=== PATIENT | male | born 1945 | race Caucasian/White ===

== ENCOUNTER → 2016-07-30 | Outpatient (REF) | payer MEDICARE, MEDICAID ==
[~2016-07-30] MED LIST: AMLO25TA PO; BENI40TA7 PO; CALTTAB10 PO; DOCU10CA PO; DULC5TAB PO; FENO145T PO; FISH1000 PO; LEVA250T PO; MIRA3350 PO; OSEL75CA PO; PERC5TAB6 PO; PRAV40TA2 PO
[2016-07-30 13:08] LABS: ALBUMIN 4.2 GM/DL (3.2-5.2); ALBUMIN/GLOBULIN RATIO 1.31 (1.00-1.93); BILIRUBIN,TOTAL 0.5 MG/DL (0.2-1.0); CALCIUM LEVEL 9.1 MG/DL (8.8-10.2); CREATININE FOR GFR 1.38 MG/DL (0.70-1.30); GLOMERULAR FILTRATION RATE 53.8 (>42); POTASSIUM SERUM 4.1 MEQ/L (3.5-5.1); TOTAL PROTEIN 7.4 GM/DL (6.4-8.2)
== END ==
LOC: M SFHCPLAZ 12:35
PROVIDERS: ATTEND Family Medicine
DX: I10 Essential (primary) hypertension (principal)

== ENCOUNTER → 2016-10-16 | Outpatient (REF) | payer MEDICARE, MEDICAID | LOC: M SFHCPLAZ 14:17 | PROVIDERS: ATTEND Family Medicine | DX: R73.03 Prediabetes (principal) ==

== ENCOUNTER → 2016-11-23 | Outpatient (CLI) | payer MEDICARE, MEDICAID ==
--- NOTE | 2016-11-23 14:30 | REP ---
CT abdomen pelvis without IV or bowel contrast: Comparison is 08/18/2014. On the comparison study there was a small half 3 ml nonobstructive right renal calculus. This calculus is no longer present. Previously there was a right ureteral stent. This stent has been removed. There are no left renal calculi, as previously. There are no ureteral or bladder calculi. There is no hydronephrosis. The visualized lung khanna are unremarkable. The unenhanced hepatic parenchyma, gallbladder, pancreas and spleen are unremarkable. The adrenals, kidneys and abdominal aorta are unremarkable. There is no bowel distension. Pelvis: There is no ascites or adenopathy. The prostate is moderately enlarged and contains prostatic list. The bladder is almost completely collapsed. There is no adenopathy or ascites. There is descending colon diverticulosis without diverticulitis. Impression: There are no renal, ureteral or bladder calculi. The previous right renal calculus is no longer present. The previous right ureteral stent has been removed. There is descending colon diverticulosis without diverticulitis, unchanged. The prostate is moderately enlarged and contains prostatic of this. Signed by Chaim Chopra MD 11/23/2016 02:21 P
== END ==
LOC: M RAD 12:46
PROVIDERS: ATTEND Internal Medicine Nephrology
DX: N40.0 Benign prostatic hyperplasia without lower urinary tract symptoms (principal); K57.30 Diverticulosis of large intestine without perforation or abscess without bleeding; Z87.442 Personal history of urinary calculi

== ENCOUNTER → 2017-03-10 | Outpatient (REF) | payer MEDICARE, MEDICAID ==
[~2017-03-10] MED LIST changes: +BENI40TA30 PO; -BENI40TA7 PO; +LEVA1TAB PO; -LEVA250T PO; +PERC5TAB12 PO; -PERC5TAB6 PO
== END ==
LOC: M SFHCPLAZ 10:12
DX: R73.03 Prediabetes (principal)

== ENCOUNTER → 2017-03-17 | Outpatient (REF) | payer MEDICARE, MEDICAID ==
[2017-03-17 13:17] LABS: BASO % 0.3 % (0.0-1.0); EOS # 0.1 10^3/uL (0.0-0.50); EOS % 0.7 % (0.0-3.0); IMMATURE GRANULOCYTE % 0.4 % (0-0); LYMPH # 1.1 10^3/uL (1.5-4.5); LYMPH % 14.5 % (24.0-44.0); MEAN CORPUSCULAR HEMOGLOBIN 31.1 pg (27.0-33.0); MEAN CORPUSCULAR HGB CONC 33.3 g/dl (32.0-36.5); MEAN CORPUSCULAR VOLUME 93.4 fl (80.0-96.0); MONO # 0.9 10^3/uL (0.0-0.8); MONO % 11.7 % (0.0-5.0); NEUTROPHILS # 5.4 10^3/uL (1.8-7.7); NEUTROPHILS % 72.4 % (36.0-66.0); PLATELET COUNT, AUTOMATED 227 10^3/uL (150-450); RED CELL DISTRIBUTION WIDTH 12.7 % (11.5-14.5); WHITE BLOOD COUNT 7.5 10^3/uL (4.0-10.0)
[2017-03-17 13:20] LABS: ANION GAP 9 MEQ/L (8-16); BLOOD UREA NITROGEN 29 MG/DL (7-18); CALCIUM LEVEL 9.3 MG/DL (8.8-10.2); CARBON DIOXIDE LEVEL 26 MEQ/L (21-32); CHLORIDE LEVEL 102 MEQ/L (98-107); CREATININE FOR GFR 1.16 MG/DL (0.70-1.30); GLOMERULAR FILTRATION RATE > 60.0 (>42); GLUCOSE, FASTING 89 MG/DL (83-110); POTASSIUM SERUM 4.4 MEQ/L (3.5-5.1); SODIUM LEVEL 137 MEQ/L (136-145)
[2017-03-17 13:23] LABS: ADD MANUAL DIFFER NO; DIFF SLIDE NUMBER 191
== END ==
LOC: M SFHCPLAZ 10:36
PROVIDERS: ATTEND Family Medicine
DX: R19.7 Diarrhea, unspecified (principal)

== ENCOUNTER → 2017-03-17 | Outpatient (CLI) | payer MEDICARE, MEDICAID ==
--- NOTE | 2017-03-17 13:31 | REP ---
Chest x-ray: Two views. History: Respiratory tract infection. Comparison study: August 24, 2014. Findings: The lungs are symmetrically aerated and free of infiltrate. Left hemidiaphragm is slightly elevated. Gaseous distension of the colon and the stomach are seen in the upper abdomen mild in degree. The heart is not enlarged. Pulmonary vasculature is not increased. There are degenerative changes in the thoracic spine. Mild pectus. Impression: No acute cardiopulmonary disease. Gaseous distension of the colon is seen in the upper abdomen. Signed by Matias Fry MD 03/17/2017 03:54 P
== END ==
LOC: M LAB 11:19 → M RAD 11:19
PROVIDERS: ATTEND Family Medicine
DX: J98.8 Other specified respiratory disorders (principal); R19.7 Diarrhea, unspecified

== ENCOUNTER → 2017-03-18 | Outpatient (REF) | payer MEDICARE, MEDICAID | LOC: M SFHCPLAZ 11:14 | PROVIDERS: ATTEND Family Medicine | DX: R19.7 Diarrhea, unspecified (principal) ==

== ENCOUNTER → 2017-08-16 | Outpatient (CLI) | payer MEDICARE, MEDICAID ==
[2017-08-16 09:44] LABS: CHOLESTEROL LEVEL 168 MG/DL (<200); HDL CHOLESTEROL 52 MG/DL (>40); LDL CHOLESTEROL 87.4 MG/DL (<100); NON-HDL-C 116 MG/DL; TRIGLYCERIDES LEVEL 143 MG/DL (<150)
[2017-08-16 09:53] LABS: ESTIMATED AVERAGE GLUCOSE 126 MG/DL (60-110)
== END ==
LOC: M LAB 08:58
DX: R73.03 Prediabetes (principal); E78.5 Hyperlipidemia, unspecified
CPT/HCPCS: 83036

== ENCOUNTER → 2017-11-09 | Outpatient (REF) | payer MEDICARE, MEDICAID ==
[2017-11-09 15:43] LABS: FREE T4 0.94 NG/DL (0.76-1.46)
[2017-11-09 20:01] LABS: FOLATE > 24.0 NG/ML
[2017-11-10 08:22] LABS: VITAMIN B12 LEVEL 1377 PG/ML
== END ==
LOC: M LAB REF 13:38
DX: E03.9 Hypothyroidism, unspecified (principal); D53.1 Other megaloblastic anemias, not elsewhere classified
CPT/HCPCS: 82746

== ENCOUNTER → 2018-09-09 | Outpatient (REF) | payer MEDICARE, MEDICAID ==
[~2018-09-09] MED LIST changes: -FENO145T PO; +FENO145T13 PO; -LEVA1TAB PO; +LEVA250T13 PO
== END ==
LOC: M SFHCPLAZ 17:05
PROVIDERS: ATTEND Dermatology
DX: C44.310 Basal cell carcinoma of skin of unspecified parts of face (principal)

== ENCOUNTER 2019-05-17 12:23 | Emergency (ER) | payer MEDICAID, MEDICARE ==
[~2019-05-17] VITALS: Ht 172.7 cm; Wt 80.9 kg
[2019-05-17] MEDS ORDERED: ALLO100T (12:39)
[2019-05-17] MEDS ORDERED: HYDR25TAB (12:39)
[2019-05-17] MEDS ORDERED: TRIA1OI (12:39)
[2019-05-17] MEDS ORDERED: METO1TAB32 (12:39)
[2019-05-17] MEDS ORDERED: MECL-58 (12:39)
[2019-05-17] MEDS ORDERED: LISI10TA4 (12:39)
[2019-05-17] MEDS ORDERED: GI COCKTAIL 50ML BTL(HYOSCYAMINE/MAALOX/LIDOCAINE VISCOUS)(1:3:1) PO ONE (13:15)
--- NOTE | 2019-05-17 13:27 | REP ---
Single view chest: 05/17/2019. Indication: Chest pain. Comparison: 03/17/2017. Findings: Poor inspiratory result is present. Moderately prominent vascular markings are noted. Opacities within the lung bases are present bilaterally. There is no pleural effusion or pneumothorax. The cardiac silhouette is not enlarged. Impression: Findings suggestive of CHF. Basilar air space consolidations are not excluded. Electronically Signed by Arslan Romero DO 05/17/2019 01:18 P
[2019-05-17 13:46] LABS: BASO % 0.3 % (0.0-1.0); HEMATOCRIT 39.1 % (42.0-52.0); LYMPH # 0.4 10^3/uL (1.5-5.0); LYMPH % 3.2 % (24.0-44.0); MEAN CORPUSCULAR HEMOGLOBIN 32.2 pg (27.0-33.0); MEAN CORPUSCULAR HGB CONC 33.2 g/dl (32.0-36.5); MEAN CORPUSCULAR VOLUME 96.8 fl (80.0-96.0); MONO # 1.2 10^3/uL (0.0-0.8); MONO % 10.1 % (0.0-5.0); NEUTROPHILS # 10.3 10^3/uL (1.5-8.5); NEUTROPHILS % 85.9 % (36.0-66.0); PLATELET COUNT, AUTOMATED 219 10^3/uL (150-450); RED BLOOD COUNT 4.04 10^6/uL (4.30-6.10)
[2019-05-17 13:52] LABS: BLOOD UREA NITROGEN 25 MG/DL (7-18); CALCIUM LEVEL 9.4 MG/DL (8.8-10.2); CARBON DIOXIDE LEVEL 28 MEQ/L (21-32); CHLORIDE LEVEL 109 MEQ/L (98-107); CK-MB VALUE MASS 6.9 NG/ML (<3.6); CPK CREATINE PHOSPHOKINASE 366 U/L (39-308); CREATININE FOR GFR 1.27 MG/DL (0.70-1.30); GLOMERULAR FILTRATION RATE 58.9 (>42); GLUCOSE, FASTING 122 MG/DL (70-100); MB/CK RELATIVE INDEX 1.89 (< OR =4); POTASSIUM SERUM 4.6 MEQ/L (3.5-5.1); SODIUM LEVEL 142 MEQ/L (136-145); TROPONIN I < 0.02 NG/ML (< 0.10)
[2019-05-17 13:59] LABS: ALBUMIN 3.7 GM/DL (3.2-5.2); BILIRUBIN,DIRECT 0.2 MG/DL (0.0-0.2); BILIRUBIN,TOTAL 0.9 MG/DL (0.2-1.0); TOTAL PROTEIN 7.2 GM/DL (6.4-8.2)
[2019-05-17 14:21] LABS: NT-PRO BNP 353 PG/ML (<450)
[2019-05-17] MEDS ORDERED: FAMOTIDINE 20 MG TAB PO ONE (15:15)
--- NOTE | 2019-05-17 15:45 | ECGEPIP ---
[facility] - ED Test Date: 2019-05-17 Pat Name: ROSALVA EDWARDS Department: Room: - Gender: Male On Call Pharmacy Technician: ct : 1945 Requested By: DOMINIQUE Padilla Order Number: [id number] Reading MD: Lesly Ko Measurements Intervals [place] Rate: 71 P: 36 CT: 189 QRS: -19 QRSD: 90 T: 56 QT: 344 QTc: 374 Interpretive Statements SINUS RHYTHM MODERATE VOLTAGE CRITERIA FOR LVH, CONSIDER NORMAL VARIANT CLINICAL CORRELATION ADVISED SEPTAL AR Electronically Signed on 05-17-2019 15:44:38 EST by Lesly Ko
[2019-05-17 17:17] LABS: CK-MB VALUE MASS 4.7 NG/ML (<3.6); CPK CREATINE PHOSPHOKINASE 313 U/L (39-308); TROPONIN I < 0.02 NG/ML (< 0.10)
[2019-05-17] MEDS ORDERED: PEPC1TAB5 PO (17:21)
[2019-05-17 18:00] VITALS: BP 113/58
--- NOTE | 2019-05-18 17:55 | ECGEPIP ---
[facility] - ED Test Date: 2019-05-17 Pat Name: ROSALVA EDWARDS Department: Room: - Gender: Male [employer] Developer: ct : 1945 Requested By: LISBETH CARRERA Order Number: [id number] Reading MD: Kaiser Miller Measurements Intervals [place] Rate: 67 P: 34 GA: 192 QRS: -24 QRSD: 80 T: 50 QT: 349 QTc: 369 Interpretive Statements SINUS RHYTHM BORDERLINE LEFT AXIS DEVIATION VOLTAGE CRITERIA FOR LVH SIMILAR TO PRIOR ON SAME DATE Electronically Signed on 05-18-2019 17:55:51 EST by Kaiser Miller
== END 2019-05-17 18:25 | disposition home or self-care (01) ==
LOC: M ED 13:27
DX: K21.9 Gastro-esophageal reflux disease without esophagitis (principal); R05 Cough; R91.8 Other nonspecific abnormal finding of lung field; R94.31 Abnormal electrocardiogram [ECG] [EKG]; I10 Essential (primary) hypertension; E78.5 Hyperlipidemia, unspecified; Z87.442 Personal history of urinary calculi; Z79.82 Long term (current) use of aspirin; Z79.84 Long term (current) use of oral hypoglycemic drugs; Z79.899 Other long term (current) drug therapy

== ENCOUNTER 2019-06-27 06:50 | Day surgery (SDC) | payer MEDICAID, MEDICARE ==
[~2019-06-27] VITALS: Ht 172.7 cm; Wt 73.9 kg
[~2019-06-27 06:50] MED LIST changes: +ALLO100T PO; +ASPI81TA26 PO; +B-12100010 PO; +CALTTAB6 PO; +COLA100C5 PO; -FENO145T13 PO; +FENO145T7 PO; +HYDR25TAB PO; +LISI10TA4 PO; +MECL-58; +METO1TAB32 PO; +NS 1,000 ML IV ONE; +PEPC1TAB5 PO; +TRIA1OI; +VITA100066 PO
[2019-06-27] MEDS ORDERED: propofoL 200 MG/20 ML VIAL As Ordered ONE (07:03)
[2019-06-27] MEDS ORDERED: LIDOCAINE 2% INJ 100 MG/5 ML SDV (FOR ANES.) As Ordered ONE (07:03)
[2019-06-27] MEDS ORDERED: ePHEDrine SULFATE 25 MG/5 ML(5MG/ML) SYRINGE As Ordered ONE (07:50)
--- NOTE | 2019-06-27 08:12 | ROOR ---
Patient Name: Jg Beckwith Procedure Date: 06/27/2019 7:40 AM Date of : 1945 Age: 73 Room: [facility] Gender: Male Note Status: Finalized Procedure: Colonoscopy Indications: Heme positive stool Providers: Keshawn Lieberman MD Referring MD: Yessenia Swain NP Requesting Provider: Medicines: Monitored Anesthesia Care Complications: No immediate complications. Procedure: Pre-Anesthesia Assessment: - Prior to the procedure, a History and Physical was performed, and patient medications and allergies were reviewed. The patient is competent. The risks and benefits of the procedure and the sedation options and risks were discussed with the patient. All questions were answered and informed consent was obtained. Patient identification and proposed procedure were verified by the physician, the nurse and the anesthesiologist in the procedure room. Mental Status Examination: alert and oriented. CV Examination: regular rate and rhythm. Prophylactic Antibiotics: The patient does not require prophylactic antibiotics. Prior Anticoagulants: The patient has taken no previous anticoagulant or antiplatelet agents. ASA Grade Assessment: II - A patient with mild systemic disease. After reviewing the risks and benefits, the patient was deemed in satisfactory condition to undergo the procedure. The anesthesia plan was to use monitored anesthesia care (MAC). Immediately prior to administration of medications, the patient was re-assessed for adequacy to receive sedatives. The heart rate, respiratory rate, oxygen saturations, blood pressure, adequacy of pulmonary ventilation, and response to care were monitored throughout the procedure. The physical status of the patient was re-assessed after the procedure. The Colonoscope was introduced through the anus and advanced to the cecum, identified by appendiceal orifice and ileocecal valve. The colonoscopy was performed without difficulty. The colonoscopy was performed without difficulty. The patient tolerated the procedure well. The quality of the bowel preparation was good. Findings: The perianal and digital rectal examinations were normal. A 3 mm polyp was found in the distal transverse colon. The polyp was sessile. The polyp was removed with a jumbo cold forceps. Resection and retrieval were complete. Estimated blood loss was minimal. Many medium-mouthed diverticula were found in the sigmoid colon and distal descending colon. Impression: - One 3 mm polyp in the distal transverse colon, removed with a jumbo cold forceps. Resected and retrieved. - Diverticulosis in the sigmoid colon and in the distal descending colon. Recommendation: - Discharge patient to home. - Resume previous diet. - Continue present medications. - Await pathology results. - Repeat colonoscopy in 5 years for surveillance. Keshawn Lieberman MD Keshawn Lieberman MD 06/27/2019 8:12:30 AM Electronically signed by Keshawn Lieberman MD Number of Addenda: 0 Note Initiated On: 06/27/2019 7:40 AM Estimated Blood Loss: Estimated blood loss was minimal.
[2019-06-27 08:56] VITALS: BP 140/67
== END 2019-06-27 08:40 | disposition home or self-care (01) ==
LOC: M OPP 06:50
PROVIDERS: ATTEND Surgery
DX: D12.3 Benign neoplasm of transverse colon (principal); K57.30 Diverticulosis of large intestine without perforation or abscess without bleeding; R19.5 Other fecal abnormalities; Z79.82 Long term (current) use of aspirin; Z79.899 Other long term (current) drug therapy

== ENCOUNTER → 2020-12-02 | Outpatient (CLI) | payer MEDICARE, MEDICAID ==
[~2020-12-02] MED LIST changes: +HYDR-3490 PO; -HYDR25TAB PO; +LISI10TA22 PO; -LISI10TA4 PO; -NS 1,000 ML IV ONE
--- NOTE | 2020-12-02 14:35 | REP ---
INDICATION: CALCULUS OF KIDNEY, ACUTE KIDNEY FAILURE. COMPARISON: 07/15/2015. TECHNIQUE: Real-time sonographic evaluation of the kidneys is performed. FINDINGS: Renal cortical echogenicity pattern is normal bilaterally and contours are smooth. There is a cyst in the mid right kidney measuring 1 cm in maximum diameter. There is no hydronephrosis bilaterally. The right kidney measures 9.0 x 4.1 x 4.6 cm. Left renal dimensions are is 9.5 x 4.4 x 4.7 cm. The urinary bladder is unremarkable. IMPRESSION: No hydronephrosis. Cyst mid right kidney 1 cm in diameter. <Electronically signed by Chaim Bueno > 12/02/20 [id number]
== END ==
LOC: M RAD 12:33
PROVIDERS: ATTEND Nurse Practitioner Family
DX: N20.0 Calculus of kidney (principal); N17.9 Acute kidney failure, unspecified

== ENCOUNTER → 2021-12-23 | Outpatient (REF) | payer MEDICARE, MEDICAID ==
[2021-12-23 20:31] LABS: POTASSIUM SERUM 4.5 MEQ/L (3.5-5.1)
== END ==
LOC: M LAB REF 18:11
PROVIDERS: ATTEND Nurse Practitioner Family
DX: N18.31 Chronic kidney disease, stage 3a (principal); I12.9 Hypertensive chronic kidney disease with stage 1 through stage 4 chronic kidney disease, or unspecified chronic kidney disease; E87.5 Hyperkalemia

== ENCOUNTER → 2022-11-04 | Outpatient (REF) | payer MEDICARE, MEDICAID ==
[~2022-11-04] MED LIST changes: -BENI40TA30 PO; +OLME-3 PO
[2022-11-05 18:31] LABS: FOLATE 23.1 NG/ML (>5.4)
== END ==
LOC: M LAB REF 17:02
PROVIDERS: ATTEND Nurse Practitioner Family
DX: D51.9 Vitamin B12 deficiency anemia, unspecified (principal)

== ENCOUNTER → 2023-03-01 | Outpatient (CLI) | payer MEDICARE, MEDICAID ==
[~2023-03-01] MED LIST changes: +AMLO1TAB25 PO; +CHLO125TA PO; +LISI20TA33 PO; +TORS10TA3 PO; +VITA100093 PO
[2023-03-01 15:01] LABS: ALBUMIN 4.4 G/DL (3.2-5.2); BILIRUBIN,TOTAL 0.4 MG/DL (0.3-1.2); CALCIUM LEVEL 9.4 MG/DL (8.3-10.6); CREATININE FOR GFR 1.28 MG/DL (0.70-1.30); GLOMERULAR FILTRATION RATE 57.7 (>42); POTASSIUM SERUM 5.4 MMOL/L (3.5-5.1); TOTAL PROTEIN 7.1 G/DL (5.7-8.2)
[2023-03-01 15:02] LABS: BASO # 0.1 10^3/uL (0.0-0.2); BASO % 0.9 % (0.0-1.0); EOS # 0.3 10^3/uL (0.0-0.5); EOS % 4.9 % (0.0-3.0); HEMATOCRIT 34.6 % (42.0-52.0); HEMOGLOBIN 11.1 g/dl (13.5-17.5); LYMPH % 18.4 % (24.0-44.0); MEAN CORPUSCULAR HEMOGLOBIN 32.7 pg (27.0-33.0); MEAN CORPUSCULAR HGB CONC 32.1 g/dl (32.0-36.5); MEAN CORPUSCULAR VOLUME 102.1 fl (80.0-96.0); MONO # 0.5 10^3/uL (0.0-0.8); MONO % 9.2 % (2.0-8.0); NEUTROPHILS # 3.7 10^3/uL (1.5-8.5); NEUTROPHILS % 66.4 % (36.0-66.0); PLATELET COUNT, AUTOMATED 252 10^3/uL (150-450); RED BLOOD COUNT 3.39 10^6/uL (4.30-6.10); WHITE BLOOD COUNT 5.5 10^3/uL (4.0-10.0)
[2023-03-01 15:03] LABS: FERRITIN 36.8 NG/ML (10.5-307.3)
[2023-03-04 19:07] LABS: ERYTHROPOIETIN 17.3 mIU/mL (2.6-18.5); IMMUNOTYPING SERUM IGA SO 148 mg/dL (61-437); IMMUNOTYPING SERUM IGM SO 58 mg/dL (15-143)
== END ==
LOC: M PLALAB 09:45
PROVIDERS: ATTEND Family Medicine
DX: Z01.818 Encounter for other preprocedural examination (principal); D53.9 Nutritional anemia, unspecified; I10 Essential (primary) hypertension

== ENCOUNTER → 2023-03-01 | Outpatient (REF) | payer MEDICARE, MEDICAID | LOC: M SFHCPLAZ 15:28 | PROVIDERS: ATTEND Family Medicine | DX: Z01.818 Encounter for other preprocedural examination (principal); I10 Essential (primary) hypertension; D53.9 Nutritional anemia, unspecified ==

== ENCOUNTER → 2023-04-06 | Outpatient (CLI) | payer MEDICARE, MEDICAID | LOC: M RAD 08:06 | PROVIDERS: ATTEND Family Medicine | DX: I10 Essential (primary) hypertension (principal); N18.31 Chronic kidney disease, stage 3a ==

== ENCOUNTER → 2023-08-18 | Outpatient (CLI) | payer MEDICARE, MEDICAID ==
[2023-08-18 14:38] LABS: HEMATOCRIT 40.8 % (42.0-52.0); HEMOGLOBIN 13.5 g/dl (13.5-17.5); MEAN CORPUSCULAR HEMOGLOBIN 32.2 pg (27.0-33.0); MEAN CORPUSCULAR HGB CONC 33.1 g/dl (32.0-36.5); MEAN CORPUSCULAR VOLUME 97.4 fl (80.0-96.0); PLATELET COUNT, AUTOMATED 228 10^3/uL (150-450); RED BLOOD COUNT 4.19 10^6/uL (4.30-6.10); WHITE BLOOD COUNT 7.4 10^3/uL (4.0-10.0)
[2023-08-18 15:06] LABS: HEMOGLOBIN A1c 5.8 % (4.0-6.0)
[2023-08-18 15:11] LABS: CREATININE, URINE 60.7 MG/DL
[2023-08-18 15:13] LABS: C REACTIVE PROTEIN QUANTITATIV < 0.40 MG/DL (<1.0)
[2023-08-18 15:15] LABS: ALBUMIN 4.2 G/DL (3.2-5.2); ALKALINE PHOSPHATASE 112 U/L (46-116); ALT/SGPT 18 U/L (7.0-40); AST/SGOT 19 U/L (<34); BILIRUBIN,TOTAL 0.6 MG/DL (0.3-1.2); BLOOD UREA NITROGEN 30 MG/DL (9-23); CALCIUM LEVEL 8.9 MG/DL (8.3-10.6); CARBON DIOXIDE LEVEL 30 MMOL/L (20-31); CHLORIDE LEVEL 105 MMOL/L (98-107); CHOLESTEROL LEVEL 180 MG/DL (<200); CHOLESTEROL RISK RATIO 3.52 (<5); CREATININE FOR GFR 1.01 MG/DL (0.70-1.30); FERRITIN 27.1 NG/ML (10.5-307.3); FREE T4 1.12 NG/DL (0.89-1.76); GLOMERULAR FILTRATION RATE > 60.0 (>35); GLUCOSE, FASTING 79 MG/DL (74-106); LDL CHOLESTEROL 103.8 MG/DL (<100); POTASSIUM SERUM 4.5 MMOL/L (3.5-5.1); SODIUM LEVEL 142 MMOL/L (136-145); THYROID STIMULATING HORMONE 2.563 uIU/ML (0.55-4.78); TOTAL 25(OH) VITAMIN D 40.5 NG/ML (20.0-100.0); TOTAL PROTEIN 6.7 G/DL (5.7-8.2); TRIGLYCERIDES LEVEL 126 MG/DL (<150)
[2023-08-18 15:16] LABS: VITAMIN B12 LEVEL 1469 PG/ML (211-911)
[2023-08-18 15:25] LABS: MAU/CREAT RATIO 3192.7 MCG/MG (0.0-30.0)
== END ==
LOC: M PLALAB 11:58
PROVIDERS: ATTEND Internal Medicine Hematology
DX: E78.2 Mixed hyperlipidemia (principal); D50.9 Iron deficiency anemia, unspecified; Z79.899 Other long term (current) drug therapy

== ENCOUNTER 2024-10-30 10:56 | Day surgery (SDC) | payer MEDICARE, MEDICAID ==
[~2024-10-30] VITALS: Ht 172.7 cm; Wt 71.5 kg
[~2024-10-30 10:56] MED LIST changes: +AMLO1TAB24 PO; +LR 1,000 ML IV SCH; +TORS20TA2 PO
[2024-10-30] MEDS: TETRACAINE 0.5% OPHTH SOLN 4ML OS SCH (11:37)
[2024-10-30] MEDS: PHENYLEPHRINE 2.5% OPHTH SOL 2ML OS SCH (11:37)
[2024-10-30] MEDS: FLURBIPROFEN 0.03% OPHTH SOLN 2.5 ML OS SCH (11:37)
[2024-10-30] MEDS: CYCLOPENTOLATE 1% OPHTH SOLN 2ML BTL OS SCH (11:37)
[2024-10-30] MEDS ORDERED: fentaNYL 100 MCG/2 ML INJECTION As Ordered ONE (12:16)
[2024-10-30] MEDS: LIDOCAINE 1% SDV 5ML VIAL As Ordered ONE (12:40)
[2024-10-30] MEDS: CEFUROXIME 1MG/0.1ML INTRACAMERAL INJ As Ordered ONE (12:40)
[2024-10-30 13:00] VITALS: BP 155/70; TEMP 98.4; O2SAT 98
== END 2024-10-30 13:27 | disposition home or self-care (01) ==
LOC: M SDC 10:56
PROVIDERS: ATTEND Ophthalmology
DX: H25.12 Age-related nuclear cataract, left eye (principal); I12.9 Hypertensive chronic kidney disease with stage 1 through stage 4 chronic kidney disease, or unspecified chronic kidney disease; N18.30 Chronic kidney disease, stage 3 unspecified; E78.00 Pure hypercholesterolemia, unspecified; M10.9 Gout, unspecified; Z79.899 Other long term (current) drug therapy; Z79.82 Long term (current) use of aspirin; Z98.41 Cataract extraction status, right eye
CPT/HCPCS: 66984; J0697; J3010; V2632